=== PATIENT | female | born 1985 | race Caucasian/White ===

== ENCOUNTER → 2017-10-04 | Outpatient (CLI) | payer BC | LOC: FIMAGING 09:29 | PROVIDERS: ATTEND Advanced Practice Midwife | DX: O35.8XX0 Maternal care for other (suspected) fetal abnormality and damage, not applicable or unspecified (principal); Z3A.21 21 weeks gestation of pregnancy ==

== ENCOUNTER → 2018-02-21 | Outpatient (CLI) | payer BC | LOC: FIMAGING 13:49 | PROVIDERS: ATTEND Advanced Practice Midwife | DX: O48.0 Post-term pregnancy (principal); Z3A.41 41 weeks gestation of pregnancy ==